=== PATIENT | female | born 1945 | race Caucasian/White ===

== ENCOUNTER 2024-04-14 08:39 | Outpatient (OUT) | payer MEDICARE, SELFPAY ==
--- NOTE | 2024-04-14 09:07 | XR_ITS ---
The [address] [address] Patient Name: JED WASHINGTON MRN: [id number] date: 1945 Sex: F Assigned Patient Location: [facility] Current Patient Location: Accession/Order Number: [id number] Exam Date: 04/14/2024 08:55 Report Date: 04/15/2024 05:04 At the request of: JESSENIA VIRK Procedure: XR DEXA axial skeleton EXAMINATION: XR DEXA axial skeleton HISTORY: subsequent medicare wellness visit COMPARISON: No relevant comparison available. TECHNIQUE: Dual-energy X-ray absorptiometry (DXA) was performed. FINDINGS: SPINE ANALYSIS: Average bone mineral density is 1.105 g/cm2. T-score (standard deviation relative to young adult mean): -0.6 . HIP ANALYSIS: Lowest bone mineral density is within the left femoral neck, 0.806 g/cm2. T-score (standard deviation relative to young adult mean): -1.7 . XR/XR DEXA axial skeleton IMPRESSION: World Health Organization Classification: Osteopenia - Moderate Fracture Risk FRAX: Cannot calculate. Pharmacologic treatment recommendations * No uniform recommendation applies to all patients. Management plans must be individualized. * Consider initiating pharmacologic treatment in postmenopausal women and men >= 50 years of age who have the following: Primary fracture prevention: * T-score <= - 2.5 at the femoral neck, total hip, lumbar spine, 33% radius (some uncertainty with existing data) by DXA. * Low bone mass (osteopenia: T-score between - 1.0 and - 2.5) at the femoral neck or total hip by DXA with a 10-year hip fracture risk >= 3% or a 10-year major osteoporosis-related fracture risk >= 20% (i.e., clinical vertebral, hip, forearm, or proximal humerus) based on the [place]-adapted FRAXregistered model. Secondary fracture prevention: * Fracture of the hip or vertebra regardless of BMD [4, 5]. * Fracture of proximal humerus, pelvis, or distal forearm in persons with low bone mass (osteopenia: T-score between - 1.0 and - 2.5). The decision to treat should be individualized in persons with a fracture of the proximal humerus, pelvis, or distal forearm who do not have osteopenia or low BMD [12, 13]. Rachel MS, Madhu SL, Ryan KL, Jeet EM, Tae KG, AJ, Jaquelin ES. The clinician's guide to prevention and treatment of osteoporosis. Osteoporos Int. 2021;33(10):1009-8172. doi: 10.1007/b85206-680-16231-i. Epub 2021Nov 07. Erratum in: Osteoporos Int. 2021Feb 06;: PMID: [id number]; PMCID: [id number]. Electronically authenticated by: JOSE BRICENO Date: 04/15/2024 05:04
== END 2024-04-14 08:40 | disposition home or self-care (01) ==
LOC: RAD 08:43
PROVIDERS: PCP Family Medicine; Visit Provider Family Medicine
DX: E28.39 Other primary ovarian failure (principal); M85.80 Other specified disorders of bone density and structure, unspecified site
CPT/HCPCS: 77080